=== PATIENT | female | born 1990 | race Hispanic/Latino ===

== ENCOUNTER 2018-03-06 13:21 | Inpatient (IN) | payer OTHER ==
[~2018-03-06 13:21] MED LIST: Dexamethasone 20 MG/5 ML VIAL ONE; Esmolol 100 MG/10 ML VIAL ONE; Glycopyrrolate 0.2 MG/ML 5 ML SYRINGE ONE; ISOVUE-370 76%-LOCM 1 ML ONE; Lidocaine 1% PF 5 ML VIAL ONE; Ondansetron HCl/PF 4 MG/2 ML Vial ONE; PHENYLEPHRINE-NS 100 MCG/ML 10 ML SYRINGE ONE; PROPOFOL 200 MG/20 ML VIAL ONE; Succinylcholine Chloride 20 MG/ML 10 ml SYRINGE FS ONE; Vecuronium 10 MG VIAL ONE; ePHEDrine/0.9% NaCl/PF SYRINGE 50 mg/10 ml ONE
[2018-03-06] MEDS ORDERED: Ondansetron HCl/PF 4 MG/2 ML Vial ONE (13:29)
[2018-03-06] MEDS ORDERED: Morphine 4 MG/ML VIAL ONE ×2 (13:29→14:25)
[2018-03-06 13:40] LABS: #Basophils 0.1 thou/uL (0.0-0.2); #Eosinphils 0.1 thou/uL (0.0-0.7); #Lymphocytes 2.8 thou/uL (1.20-3.40); #Monocytes 0.8 thou/uL (0.11-0.59); #Neutrophils 14.6 thou/uL (1.40-6.50); %Basophils 0.4 % (0.0-1.0); %Eosinophils 0.4 % (0.0-10.0); %Lymphocytes 15.1 % (21.0-51.0); %Monocytes 4.4 % (0.0-10.0); %Neutrophils 79.7 % (42.0-75.0); Hemoglobin 12.7 g/dL (12.0-16.0); Mean Corpuscular HGB CONC 33.8 g/dL (32.0-36.0); Mean Corpuscular Hemoglobin 31.9 pg (27.0-31.0); Mean Corpuscular Volume 94.3 fL (78.0-98.0); Mean Platelet Volume 7.9 fL (7.4-10.4); Platelet Count 339 thou/uL (130-400); RBC Distribution Width 11.1 % (11.5-14.5); Red Blood Cell (RBC) Count 3.99 mill/uL (4.20-5.40); White Blood Cell (WBC) Count 18.3 thou/uL (4.8-10.8)
[2018-03-06 13:50] LABS: BHCG - Serum Negative (NEGATIVE); Pregs Control Background? CLEAR/WHITE (CLR/WHITE); Pregs Control Bar Appear? YES (CONTROL BAR)
[2018-03-06 13:58] LABS: ALT (SGPT) 14 U/L (8-55); AST (SGOT) 15 U/L (5-34); Albumin 4.3 g/dL (3.5-5.0); Alkaline Phosphatase 77 U/L (40-150); Anion Gap 18 mmol/L (10-20); BUN (Urea Nitrogen) 14 mg/dL (7.0-18.7); Bilirubin, Total 0.4 mg/dL (0.2-1.2); Calc. Creatinine Clearance 0 mL/min (70-130); Calcium 8.9 mg/dL (7.8-10.44); Carbon Dioxide 14 mmol/L (22-29); Chloride 109 mmol/L (98-107); Estimated GFR-MDRD 89; Glucose 115 mg/dL (70-105); Lipase 8 U/L (8-78); Protein, Total 7.3 g/dL (6.0-8.3); Sodium 138 mmol/L (136-145)
[2018-03-06 14:00] LABS: Potassium 2.9 mmol/L (3.5-5.1)
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
[2018-03-06] MEDS ORDERED: Lorazepam 2 MG/ML VIAL ONE (14:25)
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
[2018-03-06] MEDS ORDERED: Diazepam 10 MG/2 ML SYRINGE IVP SCH (14:30)
[2018-03-06] MEDS ORDERED: Fentanyl 250 MCG/5 ML VIAL ONE (14:55)
[2018-03-06] MEDS ORDERED: Midazolam HCl 2 mg/2 ml Vial ONE (14:55)
[2018-03-06] MEDS ORDERED: Sodium Chloride 0.9% 10 ML ONE (15:02)
[2018-03-06] MEDS ORDERED: Bacitracin Zinc Ointment 30 gm TUBE ONE (15:02)
[2018-03-06] MEDS ORDERED: Thrombin 5000 UNITS/5 ML VIAL ONE (15:02)
[2018-03-06] MEDS ORDERED: Dextrose 5% in Water 1,000 ML IV PRN ×2 (15:48→21:10)
[2018-03-06] MEDS ORDERED: Ondansetron ODT 4 MG TAB PO PRN ×2 (15:48→21:13)
[2018-03-06] MEDS ORDERED: Dextrose 50% Abboject 50 ML SYRINGE SLOW IVP PRN ×2 (15:48→21:10)
[2018-03-06] MEDS ORDERED: Ondansetron HCl/PF 4 MG/2 ML Vial IVP PRN ×2 (15:48→21:13)
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
[2018-03-06] MEDS ORDERED: diphenhydrAMINE 50 MG/ML VIAL IVP PRN ×2 (15:55→21:10)
[2018-03-06] MEDS ORDERED: Naloxone HCl 0.4 mg/ml Vial IV PRN ×2 (15:55→21:12)
[2018-03-06] MEDS ORDERED: diphenhydrAMINE 50 MG/ML VIAL IM PRN ×2 (15:55→21:11)
[2018-03-06] MEDS ORDERED: diphenhydrAMINE 25 MG CAP PO PRN ×2 (15:55→21:10)
[2018-03-06] MEDS ORDERED: Promethazine HCl 25 MG/ML VIAL IM PRN ×2 (15:55→21:14)
[2018-03-06] MEDS ORDERED: Sodium Chloride 0.9% 1,000 ML IV SCH ×2 (16:00→22:30)
[2018-03-06] MEDS ORDERED: Communication Order-Pharmacy FS SCH (16:00)
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
[2018-03-06] MEDS ORDERED: Acetaminophen 1,000 MG in Premix Bag 1 BAG IVPB SCH ×2 (18:00→23:59)
[2018-03-06] MEDS ORDERED: Ketorolac Tromethamine 30 MG/ML VIAL IVP SCH (18:00)
[2018-03-06] MEDS ORDERED: HYDROmorphone 0.5 MG/0.5 ML SYRINGE ONE ×2 (18:23→18:34)
[2018-03-06] MEDS ORDERED: Glycopyrrolate 0.2 MG/ML 5 ML SYRINGE ONE (18:35)
[2018-03-06] MEDS ORDERED: PHENYLEPHRINE-NS 100 MCG/ML 10 ML SYRINGE ONE ×2 (18:43→19:45)
[2018-03-06] MEDS ORDERED: tiZANidine HCl 4 MG TAB PO PRN (19:32)
[2018-03-06] MEDS ORDERED: Esmolol 100 MG/10 ML VIAL ONE (19:45)
[2018-03-06] MEDS: HYDROmorphone 10 mg/100 ml CADD IVPB PRN (19:49)
[2018-03-06 20:09] VITALS: BMI 26.6
[2018-03-06] MEDS ORDERED: Potassium Chloride 40 MEQ in Premix Bag 1 BAG IVPB SCH (20:30)
[2018-03-06] MEDS: Cyclobenzaprine 10 MG TAB PO PRN (20:38)
[2018-03-06] MEDS: Dexamethasone 4 mg/ml Vial SLOW IVP SCH (20:44)
[2018-03-06] MEDS ORDERED: Potassium Chloride 20 MEQ in Premix Bag 1 BAG IVPB SCH (20:45)
[2018-03-06] MEDS ORDERED: Senokot S 8.6-50 MG TAB PO SCH ×2 (21:00→21:45)
[2018-03-06] MEDS ORDERED: Famotidine 20 MG TAB PO SCH ×2 (21:00→21:45)
[2018-03-06] MEDS ORDERED: Famotidine/PF 20 mg/2ml Vial SLOW IVP SCH (21:00)
[2018-03-06] MEDS: Sodium Chloride 0.9% 1,000 ML IV SCH (21:26)
[2018-03-06] MEDS: CEFAZOLIN/Water 2 GM/20 ML SYRINGE SLOW IVP SCH (21:53)
[2018-03-06] MEDS ORDERED: CEFAZOLIN 2 GM in Sodium Chloride 0.9% 100 ML IVPB SCH (22:00)
[2018-03-06] MEDS ORDERED: Pregabalin 50 MG CAP PO SCH (22:30)
[2018-03-06] MEDS ORDERED: traMADol HCl 50 MG TAB PO SCH (22:45)
[2018-03-06] MEDS ORDERED: Albumin 5% 500 ML ONE (23:56)
[2018-03-07 00:07] LABS: Actual Bicarbonate (HCO3a) 15.9 mEq/L (22-28); Base Excess (BEa) -9.9 mEq/L (-2.0 to +3.0); CO2 Tension 34.8 mmHg (35.0-45.0); Carboxyhemoglobin (COHb) 0.8 gm% (0.0-3.0); Hemoglobin (Hb) 10.5 g/dL (12.0-16.0); O2 Tension (PaO2) 114.6 mmHg (80.0-100.0); pH, Arterial 7.28 (7.35-7.45)
[2018-03-07 00:08] LABS: Calcium, Ionized 1.07 mmol/L (1.12-1.30); Potassium - ABG Lab 4.1 mmol/L (3.70-5.30); Puncture Site L RADIAL
[2018-03-07] MEDS ORDERED: Calcium Chloride 1 GM/10 ML Abboject SYRINGE IVP SCH (00:15)
[2018-03-07] MEDS: Sodium Chloride 0.9% 1,000 ML IV SCH ×3 (01:01→17:02)
[2018-03-07] MEDS: Acetaminophen 1,000 MG in Premix Bag 1 BAG IVPB SCH ×2 (03:00→08:55)
[2018-03-07] MEDS: Dexamethasone 4 mg/ml Vial SLOW IVP SCH ×4 (03:04→21:07)
[2018-03-07 04:49] LABS: #Lymphocytes 0.6 thou/uL (1.20-3.40); #Monocytes 0.3 thou/uL (0.11-0.59); #Neutrophils 11.4 thou/uL (1.40-6.50); %Eosinophils 0.2 % (0.0-10.0); %Lymphocytes 5.1 % (21.0-51.0); %Monocytes 2.3 % (0.0-10.0); %Neutrophils 92.4 % (42.0-75.0); Hemoglobin 9.1 g/dL (12.0-16.0); Mean Corpuscular Hemoglobin 33.2 pg (27.0-31.0); Mean Corpuscular Volume 94.9 fL (78.0-98.0); Mean Platelet Volume 7.7 fL (7.4-10.4); Platelet Count 240 thou/uL (130-400); Red Blood Cell (RBC) Count 2.73 mill/uL (4.20-5.40); White Blood Cell (WBC) Count 12.3 thou/uL (4.8-10.8)
[2018-03-07 06:03] LABS: ALT (SGPT) 11 U/L (8-55); AST (SGOT) 17 U/L (5-34); Albumin 3.9 g/dL (3.5-5.0); Alkaline Phosphatase 53 U/L (40-150); Anion Gap 15 mmol/L (10-20); BUN (Urea Nitrogen) 5 mg/dL (7.0-18.7); Bilirubin, Total 0.5 mg/dL (0.2-1.2); Calc. Creatinine Clearance 153 mL/min (70-130); Calcium 9.4 mg/dL (7.8-10.44); Carbon Dioxide 17 mmol/L (22-29); Chloride 110 mmol/L (98-107); Estimated GFR-MDRD Greater than 90; Globulin 2.2 g/dL (2.4-3.5); Glucose 160 mg/dL (70-105); Magnesium 1.8 mg/dL (1.6-2.6); Phosphorus 3.1 mg/dL (2.3-4.7); Potassium 4.5 mmol/L (3.5-5.1); Protein, Total 6.1 g/dL (6.0-8.3); Sodium 137 mmol/L (136-145)
[2018-03-07] MEDS: CEFAZOLIN/Water 2 GM/20 ML SYRINGE SLOW IVP SCH ×3 (06:14→21:06)
[2018-03-07] MEDS: traMADol HCl 50 MG TAB PO SCH ×4 (06:14→23:41)
[2018-03-07] MEDS ORDERED: Lactated Ringer's 500 ML IV SCH (06:15)
[2018-03-07] MEDS ORDERED: Phenylephrine 10 MG/NS 250 ML 250 ML IVPB SCH (08:00)
[2018-03-07] MEDS: Ascorbic Acid 500 mg Chewable Tablet PO SCH ×2 (08:53→21:03)
[2018-03-07] MEDS: Pregabalin 50 MG CAP PO SCH ×2 (08:54→21:04)
[2018-03-07] MEDS: Ferrous Sulfate 325 MG TAB PO SCH ×2 (08:55→17:01)
[2018-03-07] MEDS: Famotidine 20 MG TAB PO SCH ×2 (08:55→21:09)
[2018-03-07] MEDS ORDERED: Polyethylene Glycol 3350 17 GM Packet PO SCH (09:00)
[2018-03-07] MEDS ORDERED: Famotidine/PF 20 mg/2ml Vial SLOW IVP SCH (09:00)
[2018-03-07] MEDS ORDERED: Senokot S 8.6-50 MG TAB PO SCH (09:00)
[2018-03-07] MEDS: Polyethylene Glycol 3350 17 GM Packet PO SCH ×2 (09:07→09:22)
[2018-03-07] MEDS: Senokot S 8.6-50 MG TAB PO SCH ×3 (09:08→21:03)
--- NOTE | 2018-03-07 10:56 | PRG ---
DATE OF SERVICE: 03/07/2018 SUBJECTIVE: Ms. Sin is postoperative from T10-L2 stabilization and a T11-L1 laminectomy. She is doing well and appears to be in much better spirits regarding her pain control. She does complain o f some paresthesias into the heels and the leg with some radicular pain, but moves all extremities to command with no apparent motor deficits. I would be fine mobilizing her. I would recommend a brace be worn whenever the head of bed is over 30 degrees or the patient is out of bed. Activity is caitie ated, otherwise, we will continue the drain in place.
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
[2018-03-07] MEDS: Acetaminophen 500 MG TAB PO SCH ×2 (14:10→21:04)
[2018-03-07] MEDS: HYDROmorphone 10 mg/100 ml CADD IVPB PRN (14:33)
[2018-03-08] MEDS: Dexamethasone 4 mg/ml Vial SLOW IVP SCH ×4 (02:00→20:26)
[2018-03-08] MEDS: Cyclobenzaprine 10 MG TAB PO PRN (02:39)
[2018-03-08] MEDS: Sodium Chloride 0.9% 1,000 ML IV SCH (02:51)
[2018-03-08] MEDS: traMADol HCl 50 MG TAB PO SCH ×4 (06:50→23:57)
[2018-03-08] MEDS: CEFAZOLIN/Water 2 GM/20 ML SYRINGE SLOW IVP SCH ×3 (06:50→22:03)
[2018-03-08] MEDS: Senokot S 8.6-50 MG TAB PO SCH (08:05)
[2018-03-08] MEDS: Ascorbic Acid 500 mg Chewable Tablet PO SCH ×2 (08:06→20:26)
[2018-03-08] MEDS: Bisacodyl 10 MG SUPP PR SCH (08:06)
[2018-03-08] MEDS: Famotidine 20 MG TAB PO SCH ×2 (08:06→20:26)
[2018-03-08] MEDS: Ferrous Sulfate 325 MG TAB PO SCH ×2 (08:06→17:45)
[2018-03-08] MEDS: Polyethylene Glycol 3350 17 GM Packet PO SCH (08:06)
[2018-03-08] MEDS: Pregabalin 50 MG CAP PO SCH ×2 (08:13→20:25)
[2018-03-08] MEDS ORDERED: HYDROcodone/Acetaminophen 10/325 mg Tablet PO SCH (09:00)
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
[2018-03-08] MEDS: HYDROcodone/Acetaminophen 10/325 mg Tablet PO SCH ×3 (12:32→23:56)
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
[2018-03-08] MEDS: Senokot 8.6 MG TAB PO SCH (20:26)
[2018-03-09] MEDS: Dexamethasone 4 mg/ml Vial SLOW IVP SCH ×3 (02:24→14:50)
[2018-03-09] MEDS: CEFAZOLIN/Water 2 GM/20 ML SYRINGE SLOW IVP SCH (05:49)
[2018-03-09] MEDS: traMADol HCl 50 MG TAB PO SCH ×3 (05:49→15:28)
[2018-03-09] MEDS: HYDROcodone/Acetaminophen 10/325 mg Tablet PO SCH (05:51)
--- NOTE | 2018-03-09 08:15 | PRG ---
DATE OF SERVICE: 03/09/2018 Ms. iSn is hospital day #3 following stabilization for burst fracture. She is doing well with pa resthesias in her lower extremities, and she is ambulating. She is voiding on her own and tolerating orals. We went over extensively inter and postoperative issues. I plan to see her in a couple week s. She may be able to be dismissed today.
[2018-03-09] MEDS: Famotidine 20 MG TAB PO SCH (08:34)
[2018-03-09] MEDS: Ferrous Sulfate 325 MG TAB PO SCH (08:34)
[2018-03-09] MEDS: Ascorbic Acid 500 mg Chewable Tablet PO SCH (08:35)
[2018-03-09] MEDS: Senokot 8.6 MG TAB PO SCH (08:35)
[2018-03-09] MEDS: Polyethylene Glycol 3350 17 GM Packet PO SCH (08:35)
[2018-03-09] MEDS: Pregabalin 50 MG CAP PO SCH (08:35)
[2018-03-09] MEDS ORDERED: HYDROcodone/Acetaminophen 5/325 mg Tablet PO PRN (09:47)
[2018-03-09] MEDS ORDERED: Ibuprofen 800 MG TAB PO SCH (10:00)
[2018-03-09] MEDS ORDERED: Acetaminophen 325 MG TAB PO SCH (10:00)
[2018-03-09] MEDS ORDERED: ALPRAZolam 0.5 MG TAB PO PRN (10:15)
[2018-03-09] MEDS: Bisacodyl 10 MG SUPP PR SCH (11:52)
[2018-03-09] MEDS: Cyclobenzaprine 10 MG TAB PO PRN (12:51)
[2018-03-09 12:56] VITALS: BP 124/79; TEMP 98.4
[2018-03-09] MEDS ORDERED: Dexamethasone 4 mg/ml Vial SLOW IVP SCH (20:00)
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
[2018-03-10] MEDS ORDERED: Venlafaxine HCl XR 150 MG CAP PO SCH (09:00)
== END 2018-03-09 16:02 | disposition home or self-care (01) | DRG 459 ==
LOC: ERS 13:21 → EDBD 13:21 → CCU 14:56 → ERS 15:15 → SURG B 03-08 16:18
PROVIDERS: ADMIT Surgery; ATTEND Surgery
PROC: 0RG Upper Joints, Fusion (ICD-10-PCS; principal; 2018-03-06)
PROC: 0RG Upper Joints, Fusion (ICD-10-PCS; 2018-03-06)
PROC: 0SG0070 Fusion of Lumbar Vertebral Joint with Autologous Tissue Substitute, Anterior Approach, Anterior Column, Open Approach (ICD-10-PCS; 2018-03-06)
DX: S22.089A Unspecified fracture of T11-T12 vertebra, initial encounter for closed fracture (principal); S24.104A Unspecified injury at T11-T12 level of thoracic spinal cord, initial encounter; V49.9XXA Car occupant (driver) (passenger) injured in unspecified traffic accident, initial encounter; E87.6 Hypokalemia
CPT/HCPCS: 36415; 70450; 71260; 72125; 74177; 76001; 80053; 82805; 83690; 83735; 84100; 84703; 85025; 96361; 96374; 96375; 96376; A4216; C1713; C1768; G0390; G8978-GP-CM; G8979-GP-CJ; G8987-GO-CL; G8988-GO-CJ; J0131; J1100; J1170; J2001; J2060; J2250; J2270; J2405; J2704; J3010; J3370; J3480; J3490; P9045; Q0162; S0028

== ENCOUNTER 2018-05-08 14:22 | Outpatient (CLI) | payer OTHER ==
--- NOTE | 2018-05-08 15:29 | RAD ---
LUMBAR SPINE TWO VIEWS: History: Back surgery. Follow up. FINDINGS: Bilateral pedicle screws are evident from each level from T10 to L2, spanning a T12 superior burst fr acture. No perihardware lucency of the lumbar components. Vertebral body heights and alignment are ma intained. Other pedicles are intact. Minimal leftward convex curvature. IMPRESSION: Positive fixation of the thoracolumbar junction. POS: [facility]
--- NOTE | 2018-05-08 15:42 | RAD ---
THREE VIEWS THORACIC SPINE: Date: 05-08-18 History: Follow up post-surgical changes. FINDINGS: Post-surgical changes related to posterior fusion of the thoracolumbar spine are noted with bipedicul ar screws and posterior rods seen. No hardware complication is appreciated on this exam. Wedge shaped compression fracture of the T12 vertebral body is identified. Vertebral body height of the remaining thoracic vertebral bodies are within normal limits and there is no additional fracture or subluxatio n identified. IMPRESSION: Post-surgical changes related to posterior fusion of the thoracolumbar spine with compression fractur e involving the T12 vertebral body. POS: [facility]
== END 2018-05-08 14:23 | disposition home or self-care (01) ==
LOC: TBSIIMAG 14:22
PROVIDERS: ATTEND Surgery
DX: S22.089A Unspecified fracture of T11-T12 vertebra, initial encounter for closed fracture (principal); M54.16 Radiculopathy, lumbar region; Z98.1 Arthrodesis status
CPT/HCPCS: 72072; 72100